=== PATIENT | female | born 1955 | race Two or more races ===

== ENCOUNTER 2025-07-30 16:30 | Emergency (ER) | payer MEDICAID ==
[~2025-07-30] VITALS: Ht 165.1 cm; Wt 74.4 kg
--- NOTE | 2025-07-30 18:49 | ED.PDOC ---
History of Present Illness HPI Comments 69-year-old female presents to ER with complaints of flu-like symptoms x1 day. Patient reports he has been experiencing dry cough, sore throat, body aches, intermittent fever and frontal headache x1 day. She rates her current pain a 7/10 and denies use of medications for current symptoms. Patient presents to ER afebrile, with steady gait, in no distress and states she has been around her son who has also been experiencing similar symptoms. Denies shortness of breath, chest pain, hemoptysis, dizziness, n/v or any further symptoms/complaints Chief Complaint: Flu like Time Seen by MD: 18:13 Primary Care Provider: UNKNOWN Reviewed Notes: Nurses Notes, Medications, Allergies Information Source: Patient Mode of Arrival: Ambulatory Past Medical History PAST MEDICAL HISTORY: HTN Surgical History: Denies all surgeries HEAD TRANSFER CLERK History: No Pertinent HEAD TRANSFER CLERK History Family History Family History: Unknown Social History Smoker: Non-Smoker Alcohol: Denies ETOH Use Drugs: Denies Drug Use Lives In: Home Constitutional: See HPI EENTM: No Symptoms Reported Respiratory: See HPI Cardiovascular: No Symptoms Reported Gastrointestinal: No Symptoms Reported Genitourinary: No Symptoms Reported Neurological: See HPI Musculoskeletal: No Symptoms Reported Integumentary: No Symptoms Reported Allergic/Immunocompromised: others (Denies) Hematologic/Lymphatic: No Symptoms Reported Endocrine: No Symptoms Reported Psychiatric: No symptoms Reported Physical Exam General Appearance: No Apparent Distress HEENT: Normal ENT Inspection, PERRL/EOMI, Pharynx Normal, TMs Normal Neck: Full Range of Motion, Non-Tender, Normal Respiratory: Chest Non-Tender, Lungs Clear, No Accessory Muscle Use, No Respiratory Distress, Normal Breath Sounds Cardiovascular: No Murmur, No Gallop, Regular Rate/Rhythm Breast Exam: Deferred Gastrointestinal: NOT DONE Genitalia: Deferred Pelvic: Deferred Rectal: Deferred Extremities: Normal capillary refill, Normal range of motion Neurologic: Alert, No Motor Deficits, Normal Affect, Normal Mood, No Sensory Deficits Cerebellar Function: Normal Reflexes: Normal Skin: Dry, Normal Color, Warm Peripheral Pulses: 2+ Radial (R), 2+ Radial (L), 2+ Brachial (R), 2+ Brachial (L) Lymphatic: No Adenopathy Was a procedure done? Was a procedure done?: No Sedation Sedation?: No Fever Differential Dx Differential Diagnosis: Pneumonia, Sepsis, Pharyngitis, Other (COVID-19, Influenza) X-Ray, Labs, Meds, VS Vital Signs Date Time Temp Pulse Resp B/P (MAP) Pulse Ox O2 Delivery O2 Flow Rate FiO2 07/30/25 18:57 99.4 94 20 114/87 (96) 92 99.4 07/30/25 18:57 94 20 92 Room Air* 0 21 07/30/25 16:33 98.4 102 16 178/119 100 98.4 Lab Test 07/30/25 18:49 Range/Units Influenza Type A Antigen Negative Negative Influenza Type B Antigen Negative Negative SARS-CoV-2 Antigen (Rapid) Negative NEGATIVE Current Medications Medications (Trade) Dose Ordered Sig/Heather Route Start Time Stop Time Status Last Admin Methylprednisolone Sodium Succinate (Solu Medrol) 125 mg ONCE ONCE IM 07/30/25 19:00 07/30/25 19:01 DC 07/30/25 18:59 PATIENT: BJ CEJACT: [id number]: [id number] : 1955 LOC: ER ROOM / BED: / AGE / SEX: 69 / F ADM STATUS: REG ER SERVICE 12 ORDERING PHYSICIAN: MAURY WEI PROCEDURE(s): CXR2 - CHEST TWO VIEWS ROUTINE REASON: cough ORDER NUMBER(s): [id number], ACCESSION NUMBER(s): [id number] CHEST RADIOGRAPH INDICATION: cough TECHNIQUE: Frontal and lateral view of the chest was obtained COMPARISON: None FINDINGS: Lines and Tubes: None Lungs: Clear. Pleura: No pleural effusion or pneumothorax. Cardiomediastinal contours: Normal heart size. Tortuous thoracic aorta. Bones: Unremarkable IMPRESSION: No acute abnormality identified. ATED BY: ISSA MEZA MD DICTATED DATE/TIME: 07/30/251848 SIGNED BY: ISSA MEZA MD SIGNED DATE/TIME: 07/30/251848 CC: Swab results reviewed- Negative Chest x-ray reviewed Solu-Medrol 125 mg IM ordered Patient afebrile, well appearing, hand improvement in symptoms and in no distress prior to discharge Advised to f/u with PCP in 1-2 days Patient verbalized understanding and agreeable with current plan of care Advised to return to ER immediately if symptoms worsen Images Reviewed?: Images reviewed and evaluated by me Time of 1ST Reevaluation: 18:52 Reevaluation 1ST: N/A Patient Education/Counseling: Diagnosis, Treatment, Prognosis, Need For Follow Up Family Education/Counseling: Diagnosis, Treatment, Prognosis, Need For Follow Up SEPSIS Sepsis Screen Date sepsis recognized/suspect: Jul 30, 2025 Time Sepsis recognized/suspect: 1637 Recent Procedure: No On Antibiotic Therapy: No Respiratory Rate >20: No Heart Rate >90: Yes Temp<36 C (96.8 F) or >38.3 C: No SBP <90 or MAP <65 mmHG: No New Acute Mental Status Change: No Is the patient on CPAP, BIPAP,: No Physician Orders Chest Two Views Routine (07/30/25 18:13) Vital Signs Date Time Temp Pulse Resp B/P (MAP) Pulse Ox O2 Delivery O2 Flow Rate FiO2 07/30/25 18:57 99.4 94 20 114/87 (96) 92 99.4 07/30/25 18:57 94 20 92 Room Air* 0 21 07/30/25 16:33 98.4 102 16 178/119 100 98.4 Medications Medications Dose Ordered Sig/Heather Route Start Time Stop Time Status Last Admin Dose Admin Methylprednisolone Sodium Succinate 125 mg ONCE ONCE IM 07/30/25 19:00 07/30/25 19:01 DC 07/30/25 18:59 Departure 1 Departure Time of Disposition: 20:16 Impression: Primary Impression: Viral URI Disposition: 01 HOME / SELF CARE / HOMELESS Condition: Stable e-Prescriptions Prednisone (Prednisone) 20 Mg Tab 20 MG PO BID for 5 Days, #10 TAB 0 Refills Prov: MAURY WEI 07/30/25 Acetaminophen (Acetaminophen) 500 Mg Tab 500 MG PO Q4HPRN, #30 TAB 0 Refills Prov: MAURY WEI 07/30/25 Discharged With: Other (son) Critical Care Note Critical Care Time?: No Stability Stability form required: No Heart Score Heart Score: Heart Score Response (Comments) Value History N/A 0 EKG N/A 0 Age N/A 0 Risk Factors N/A 0 Troponin N/A 0 Total 0 MAURY WEI Jul 30, 2025 18:49
[2025-07-30] MEDS ORDERED: ACET500T58 PO (18:52)
[2025-07-30] MEDS ORDERED: PRED20TA2 PO (18:52)
--- NOTE | 2025-07-30 18:52 | DVH ---
CHEST RADIOGRAPH INDICATION: cough TECHNIQUE: Frontal and lateral view of the chest was obtained COMPARISON: None FINDINGS: Lines and Tubes: None Lungs: Clear. Pleura: No pleural effusion or pneumothorax. Cardiomediastinal contours: Normal heart size. Tortuous thoracic aorta. Bones: Unremarkable IMPRESSION: No acute abnormality identified.
[2025-07-30 18:57] VITALS: BP 114/87; PULSE 94; RESP 20; TEMP 99.4; O2SAT 92
[2025-07-30] MEDS: methylPREDNISolone SOD SUCC 125 MG/2 ML VL IM ONE (18:59)
[2025-07-30 20:10] LABS: COVID19 ANTIGEN SOFIA FIA NEGATIVE (NEGATIVE)
== END 2025-07-30 20:27 | disposition home or self-care (01) ==
LOC: ER 16:30
DX: J06.9 Acute upper respiratory infection, unspecified (principal); B97.89 Other viral agents as the cause of diseases classified elsewhere; I10 Essential (primary) hypertension; Z20.822 Contact with and (suspected) exposure to COVID-19
CPT/HCPCS: 36415; 71046; 87426; 87804; 96372; 99284; J2919